=== PATIENT | female | born 1945 | race Caucasian/White ===

== ENCOUNTER 2017-02-17 07:30 | Inpatient (IN) ==
[2017-02-11 18:28] LABS: Appearance,Urine CLEAR; Bilirubin,Urine NEG (NEG); Color,Urine STRAW; Glucose,Urine (UA) NEGATIVE (NEG); Leukocyte Esterase,Urine NEG /uL (NEG); Nitrate,Urine NEG (NEG); Protein,Urine NEG (NEG); Specific Gravity,Urine 1.008 (1.000-1.035); Urine Blood NEG mg/dL (<0.03); Urobilinogen,Urine NEG (NEG)
[2017-02-11 18:34] LABS: Basophils # (Auto) 0 K/mcL (0.0-0.3); Basophils % (Auto) 0.5 % (0.0-2.0); Eosinophils # (Auto) 0.4 K/mcL (0.0-0.7); Eosinophils % (Auto) 4.3 % (0.0-7.0); Granulocytes % (Auto) 64.7 % (38.0-78.0); Lymphocytes # (Auto) 2.4 K/mcL (1.5-4.8); Lymphocytes % (Auto) 24.7 % (15.5-49.0); Mean Cell Volume 87.2 fL (80.0-100.0); Mean Corpuscular HGB Conc 33.6 g/dL (31.0-36.0); Mean Corpuscular Hemoglobin 29.3 pg (26.0-34.0); Monocytes # (Auto) 0.6 K/mcL (0.1-0.9); Monocytes % (Auto) 5.8 % (1.0-12.0); Platelet Count 305 K/mcL (140-440); RBC 4.26 M/mcL (4.00-5.20); Red Cell Distribution Width 14.5 % (11.5-14.5)
[2017-02-11 19:02] LABS: Blood Urea Nitrogen 18 mg/dl (8-23)
[~2017-02-17 07:30] MED LIST: CELECOXIB 200 MG CAPSULE PO SCH; PREGABALIN 75 MG CAPSULE PO SCH; ceFAZolin 1 GM VIAL IV SCH; oxyCODONE 10 MG TAB.ER.12H PO SCH
[2017-02-17] MEDS ORDERED: KETOROLAC 30 MG, ROPIVACAINE HCL/PF 49.5 ML, EPINEPHrine 0.5 MG, 0.9 % SODIUM CHLORIDE ... IJ ONE (08:00)
[2017-02-17] MEDS ORDERED: KETAMINE 100 MG/ML ML IV ONE (12:45)
[2017-02-17] MEDS ORDERED: TRANEXAMIC ACID 1,000 MG/10 ML VIAL IV ONE ×2 (12:45→14:03)
[2017-02-17] MEDS ORDERED: ONDANSETRON 4 MG/2 ML VIAL IV ONE (12:45)
[2017-02-17] MEDS ORDERED: PROPOFOL 200 MG/20 ML VIAL IV ONE (12:45)
[2017-02-17] MEDS ORDERED: LIDOCAINE HCL/PF 100 MG/5 ML SYRINGE IV ONE (12:45)
[2017-02-17] MEDS ORDERED: BUPIVACAINE W/EPI 0.5% 50 ML VIAL IJ ONE (12:45)
[2017-02-17] MEDS ORDERED: GLYCOPYRROLATE 0.2 MG/ML VIAL IV ONE (12:45)
[2017-02-17] MEDS ORDERED: MIDAZOLAM 5 MG/5 ML VIAL IV ONE (12:45)
[2017-02-17] MEDS ORDERED: PHENYLEPHRINE 10 MG/ML VIAL IV ONE (12:45)
[2017-02-17] MEDS ORDERED: GENTAMICIN SULFATE 800 MG/20 ML VIAL IR ONE (13:18)
[2017-02-17] MEDS ORDERED: METHOCARBAMOL 1,000 MG/10 ML VIAL IV PRN (13:44)
[2017-02-17] MEDS ORDERED: fentaNYL 100 MCG/2 ML VIAL IV PRN (13:44)
[2017-02-17] MEDS ORDERED: IPRATROPIUM/ALBUTEROL 3 ML AMPUL.NEB NEB PRN (13:44)
[2017-02-17] MEDS ORDERED: MEPERIDINE 25 MG/ML SYRINGE IV PRN (13:44)
[2017-02-17] MEDS ORDERED: ONDANSETRON 4 MG/2 ML VIAL IV PRN ×2 (13:44→14:03)
[2017-02-17] MEDS ORDERED: PROMETHAZINE 25 MG/ML VIAL IV PRN (13:44)
[2017-02-17] MEDS ORDERED: LACTATED RINGERS 1,000 ML IV SCH (13:45)
[2017-02-17] MEDS ORDERED: HYDROmorphone 2 MG/ML SYRINGE IV PRN (14:03)
[2017-02-17] MEDS ORDERED: BENZOCAINE/MENTHOL 1 LOZENGE PO PRN (14:03)
[2017-02-17] MEDS ORDERED: ONDANSETRON ODT 4 MG TABLET SL PRN (14:03)
[2017-02-17] MEDS ORDERED: BISACODYL 10 MG SUPP.RECT PR PRN (14:03)
[2017-02-17] MEDS ORDERED: METHOCARBAMOL 750 MG TABLET PO PRN (14:03)
[2017-02-17] MEDS ORDERED: ACETAMINOPHEN 325 MG TABLET PO PRN (14:03)
[2017-02-17] MEDS ORDERED: FLEETS ADULT ENEMA PR PRN (14:03)
[2017-02-17] MEDS ORDERED: POLYETHYLENE GLYCOL 3350 17 GM PACKET PO PRN (14:03)
[2017-02-17] MEDS ORDERED: PROMETHAZINE 25 MG/ML VIAL IM PRN (14:03)
[2017-02-17] MEDS ORDERED: MAGNESIUM HYDROXIDE 30 ML ORAL.SUSP PO PRN (14:03)
--- NOTE | 2017-02-17 14:03 | Brief Operative Note ---
Date of procedure: 02/17/17 Pre-op diagnosis: left knee oa Post-op diagnosis: same Procedure: left total knee arthroplasty Grafts/Implants: Yes Anesthesia: spinal Complications: none Surgeon: John Mckeon Improvement Leader: Supriya Bland Estimated blood loss (cc): 100 Tourniquet Time (Minutes): 50 Specimens Removed/Pathology: none sent Condition: stable Disposition: PACU
[2017-02-17] MEDS ORDERED: ALBUTEROL SULFATE 1 PUFF INHALER INH PRN (14:06)
[2017-02-17] MEDS ORDERED: SODIUM CHLORIDE 5% OPTH DROPS BOTTLE 15ML OU PRN (14:06)
[2017-02-17] MEDS ORDERED: PRAVASTATIN 40 MG TABLET PO SCH (14:15)
[2017-02-17] MEDS ORDERED: POLYCARBOPHIL VAG PRN (14:15)
--- NOTE | 2017-02-17 14:17 | Operative Note ---
DATE OF OPERATION: 02/17/2017 PREOPERATIVE DIAGNOSIS: Degenerative joint disease, left knee. POSTOPERATIVE DIAGNOSIS: Degenerative joint disease, left knee. PROCEDURE: Left total knee arthroplasty. SURGEON: Geoffrey Mckeon M.D. RETREAD SUPERVISOR SURGEON: Supriya Bland PA-C. ANESTHESIA: Spinal with LMA assist. ESTIMATED BLOOD LOSS: 100 mL. COMPLICATIONS: None noted. SPECIMENS REMOVED: None. DRAINS: None. TOURNIQUET TIME: 50 minutes at 300 mmHg. IMPLANTS: DePuy CMW2 bone cement 20 grams x4; DePuy Attune femoral posterior stabilized size 6, left narrow; DePuy Attune tibial base fixed bearing size 4 cemented; DePuy Attune tibial insert fixed bearing posterior stabilized size 6, 6 mm AOX; DePuy Attune patella medialized dome 38 mm cemented AOX. INDICATIONS: The patient has had a long-standing history of worsening pain in the knee that has failed conservative treatment. Radiographs have confirmed advanced degenerative joint disease. After a long discussion about treatment options, the patient elected to proceed with a knee arthroplasty. The risks and benefits were discussed with the patient in detail including, but not limited to, the risks of anesthesia, problems with the heart or lungs related to anesthesia, infection, compromise or injury to the nerves and blood vessels, deep venous thrombosis, pulmonary embolism, pneumonia, continued pain after surgery, worsening pain or symptoms after surgery, swelling, loss of motion, instability, leg length discrepancy, and need for repeat surgery. DESCRIPTION OF PROCEDURE: The patient was seen in the pre-anesthesia waiting room where all questions were answered and the correct side and site were identified and marked. The patient was transferred to the operating room and administered the anesthetic and given pre-operative antibiotics. A time-out was then called. The extremity was prepped and draped, exsanguinated, and the tourniquet was inflated to 300 mmHg. A midline skin incision was then made with a standard medial parapatellar arthrotomy. Debridement of the menisci, ACL, and PCL was performed followed by balancing releases in the medial lateral plane. We then established intramedullary access to both the femur and tibia in a standard fashion. The femoral guide samantha was initially placed with the distal femoral guide, pinned into place, and the distal femoral cut was performed and checked with a flat plate. We then turned our attention to the tibia. The intramedullary guide was placed with the proximal tibial cutting block. The block was appropriately positioned off the affected side, varus and valgus was checked with the extra-medullary guide, and the block was pinned into place. The proximal tibial cut was performed and the tibia was prepared for the tibial implant with appropriate rotation. The tibia, femur, and posterior compartment were debrided of osteophytes, loose bodies, and meniscal fragments We then used the gap balancing technique to balance extension with the first two cuts and good balancing was obtained with a 10 millimeter gap block. We turned our attention back to the femur and used the referencing block and implant to size appropriately. Using the gap balancing technique for the flexion space we set our rotation of the femur off the tibial cut. Anesthesia gave the patient 1 gram of Tranexamic Acid via an intravenous route. We placed the 4 in 1 cutting block and made anterior, posterior, and chamfer cuts. Box plasty cuts were then made in a standard fashion for the posterior stabilized prosthesis. We then completed osteophyte release and posterior capsule release from the posterior compartment. Trials were placed and we chose the polyethylene insert thickness that provided the best stability in all planes. With the trials in place, we did a measured resection for a resurfacing patella. We sized the patella and placed the patella trial and performed a lateral facetectomy with the saw and rongeur. Good tracking was obtained. We removed all trials, irrigated and dried all cut surfaces. We cemented the components into place including tibia, femur and patella. We placed a trial liner and held the knee in full extension with the patella compressed while the cement cured. We then removed all excess cement and placed the final polyethylene tibiofemoral component. Irrigation with 3 liters of antibiotic saline was then performed using jet-lavage. We let the tourniquet down and coagulated bleeding vessels. We injected a 100 cubic centimeter volume including Ropivacaine 49.25 cubic centimeters at 5 milligrams per cubic centimeter, Ketorolac 30 milligrams, and Epinephrine 0.5 milligrams into 100 cubic centimeters volume of normal saline. We closed the retinaculum with #2 Stratafix. We closed the subcutaneous tissue and skin in layers out to john in the skin. A sterile pressure dressing was applied. All needle and sponge counts were correct. The patient was transferred to the recovery room in stable condition. JONATHON:andrea Job ID: [id number] Doc ID: [id number] Geoffrey Mckeon MD
[2017-02-17] MEDS: 0.9 % SODIUM CHLORIDE 1,000 ML IV SCH (15:15)
--- NOTE | 2017-02-17 15:23 | XRay Report ---
CLINICAL INFORMATION: Post-Op Total Knee COMPARISON: Preoperative plain films from 07/02/2011. FINDINGS: Total knee prostheses is anatomically aligned. No osseous abnormality. Periarticular gas and soft tissue swelling seen. IMPRESSION: Negative Interpreted and Authenticated by: John Ordaz 02/17/17
[2017-02-17] MEDS: KETOROLAC 15 MG/ML VIAL IV SCH (17:40)
[2017-02-17] MEDS: DOCUSATE SODIUM 100 MG CAPSULE PO SCH (20:46)
[2017-02-17] MEDS: ASPIRIN 325 MG ENTERIC COATED TABLET PO SCH (20:46)
[2017-02-17] MEDS ORDERED: NORTRIPTYLINE 25 MG CAPSULE PO SCH (21:00)
[2017-02-17] MEDS ORDERED: SENNOSIDES 1 TABLET PO SCH (21:00)
[2017-02-17] MEDS ORDERED: SERTRALINE 50 MG TABLET PO SCH (21:00)
[2017-02-17] MEDS ORDERED: MONTELUKAST 10 MG TABLET PO SCH (21:00)
[2017-02-17] MEDS: HYDROcodone/APAP 10/325MG TABLET PO PRN (22:26)
[2017-02-17] MEDS: ceFAZolin 1 GM VIAL IV SCH (23:13)
[2017-02-17] MEDS: 0.9 % SODIUM CHLORIDE 10 ML SYRINGE IV SCH (23:13)
[2017-02-18] MEDS: KETOROLAC 15 MG/ML VIAL IV SCH ×3 (00:10→14:55)
[2017-02-18] MEDS: 0.9 % SODIUM CHLORIDE 1,000 ML IV SCH ×2 (01:43→13:43)
[2017-02-18] MEDS: ceFAZolin 1 GM VIAL IV SCH (05:56)
[2017-02-18] MEDS: 0.9 % SODIUM CHLORIDE 10 ML SYRINGE IV SCH ×2 (06:49→14:57)
--- NOTE | 2017-02-18 06:51 | Discharge Summary ---
Providers - Providers Patient information: Note initiated : 02/18/17 at 6:49 am Service Date, if different from initiated Date: [] Patient: Iris Pal 71 y/o F admitted on 02/17/17 for Total Knee Arthroplasty. Chief Complaint: [s/p left TKA POD #1 s/p left TKA. Patient doing well. Reports minimal pain in the left extremity but denies calf pain, numbness or tingling. She had an episode of orthostasis this morning when she sat up, her BP dropped to 70/40. It stabilized and returned to 103/65 after lying back down. She was restarted on all of her BP medications this morning. She denies CP or SOB. She has no questions or concerns this morning.] Discharge date: 02/18/17 Hospitalization Hospital course: Patient was brought to the OR yesterday for a left TKA which was without complication. She was admitted overnight for pain control and observation. She had no complications or events. She will d/c likely to home today or tomorrow and follow up outpatient in 2 weeks in the clinic. Discharge diagnosis: knee osteoarthritis Exam - Exam Incision healing: Yes Incision draining: No Incision red: No Incision swollen: No Incision inflamed: No Clean and dry: Yes Weight bearing status: as tolerated Range of motion: full AROM b/l ankles/feet/rt knee. Lt knee 5-12/15 Ortho Discharge - TKA - Patient Instructions Diet: Regular Diet Activity: activity as tolerated, ambulate with assistive device, weight bearing as tolerated Total Knee Protocol: For Total Knee: Start ROM MARTHA with stationary bike or rocking chair. Work on gaining full extension of knee. Posterior dislocation precautions provided. Hip abductor strengthening and gait training instructions provided. Apply Cryocuff as instructed. Dressing Care: Other (May shower tomorrow. Remove GABI/gauze. Let water run off, pat dry and replace gauze GABI. Leave dermabond in place until post op appt) - Follow Up Plan Follow Up Appointments: Supriya Bland PA-C [Physician [facility] Shift Superintendent] - 03/04/17 9:30 am Disposition: Home, Self-Care Prognosis: Fair Rehab Potential: Fair Overall status at discharge: patient is progressing back to baseline - Orders For Discharge Prescriptions: Aspirin [Ecotrin] 325 mg PO BID #60 tab.ec HYDROcodone/APAP 10/325MG [[place] 10/325Mg] 1 - 2 tab PO Q4HP PRN #60 tab PRN Reason: Pain Level 3-6 Additional Discharge Orders: Physical Therapy at Discharge - TKA Location: Determined By Patient Walker Location: Determined By Patient Pending Studies Resuscitation Status Full Code Diet Regular Diet Start ThuFeb 17 Lunch Hydrocodone Bitart/Acetaminophen ([place] 10/325mg) 0 tab PO Q4HP PRN PRN Reason: PAIN LEVEL 3-6 Last Admin: 02/17/17 22:26 Dose: 1 tab Aspirin (Ecotrin) 325 mg PO BID [facility] Last Admin: 02/17/17 20:46 Dose: 325 mg Docusate Sodium (Colace) 100 mg PO BID [facility] Last Admin: 02/17/17 20:46 Dose: 100 mg Sodium Chloride (Sodium Chloride 0.9%) 1,000 mls @ 100 mls/hr IV .Q10H [facility] Last Admin: 02/18/17 01:43 Dose: Infusion: 02/18/17 01:42 Dose: 0 mls/hr Admin: 02/17/17 15:15 Dose: 100 mls/hr Ketorolac Tromethamine (Toradol) 15 mg IV Q6 [facility] Stop: 02/19/17 12:01 Last Admin: 02/18/17 05:54 Dose: 15 mg Admin: 02/18/17 00:10 Dose: 15 mg Admin: 02/17/17 17:40 Dose: 15 mg Montelukast Sodium (Singular) 10 mg PO QHS [facility] Last Admin: 02/17/17 20:47 Dose: 10 mg Nortriptyline HCl (Pamelor) 25 mg PO Q3D@2100 [facility] Last Admin: 02/17/17 20:47 Dose: 25 mg Ondansetron HCl (Zofran Odt) 4 mg SL Q4HP PRN PRN Reason: Nausea And Vomiting Last Admin: 02/18/17 05:52 Dose: 4 mg Senna (Senokot) 2 tab PO HS [facility] Last Admin: 02/17/17 20:47 Dose: 2 tab Sertraline HCl (Zoloft) 50 mg PO HS [facility] Last Admin: 02/17/17 20:47 Dose: 50 mg Sodium Chloride (Saline Flush) 10 ml IV Q8 [facility] Last Admin: 02/17/17 23:13 Dose: Not Given Shift Summary 02/18/17 03:46 Shift Summary by Saira Davis Patient is minimal assist with FWW to BSC. She c/o left knee pain X 1 and was given 1 [place] 10/325 with some relief. She was also given her scheduled Toradol which also seemed to help. She has been able to void w/o difficulty. IV LFA SL. She did use her CPM X 2 hours early in the shift. Patient slept most of the night. Patient was pleasant and cooperative. Initialized on 02/18/17 03:46 - END OF NOTE Exam Vital signs: Temp Pulse Resp BP Pulse Ox 98.2 F 65 12 131/66 97 02/18/17 04:52 02/18/17 04:52 02/18/17 04:52 02/18/17 04:52 02/18/17 04:52 Constitutional: no acute distress Cardiovascular: other (DP/PT pulses 2+ b/l. ) Neurologic: sensation intact to touch, other (motor grossly intact. B/l LE NVI) Psychiatric: oriented to person, place and time
[2017-02-18] MEDS: HYDROcodone/APAP 10/325MG TABLET PO PRN ×3 (07:18→15:32)
[2017-02-18] MEDS ORDERED: PANTOPRAZOLE 40 MG TABLET PO SCH (07:30)
[2017-02-18] MEDS: DOCUSATE SODIUM 100 MG CAPSULE PO SCH (08:23)
[2017-02-18] MEDS: ASPIRIN 325 MG ENTERIC COATED TABLET PO SCH (08:23)
[2017-02-18] MEDS ORDERED: VALSARTAN PO SCH (09:00)
[2017-02-18] MEDS ORDERED: amLODIPine 10 MG TABLET PO SCH (09:00)
[2017-02-18] MEDS ORDERED: HYDROCHLOROTHIAZIDE 12.5 MG CAPSULE PO SCH (09:00)
[2017-02-18] MEDS ORDERED: AMLODIPINE PO SCH (09:00)
[2017-02-18] MEDS ORDERED: [UNRECOGNIZED DRUG - OTHER] PO SCH (09:00)
[2017-02-18] MEDS ORDERED: VALSARTAN 160 MG TABLET PO SCH (09:00)
[2017-02-18] MEDS ORDERED: PNEUMOCOCCAL 23-VAL P-SAC VAC 0.5 ML VIAL IM ONE (10:00)
[2017-02-18] MEDS ORDERED: SIMVASTATIN 20 MG TABLET PO SCH (21:00)
== END 2017-02-18 16:05 | disposition home or self-care (01) | DRG 470 ==
LOC: MEDSUR 08:01
PROVIDERS: ADMIT Orthopaedic Surgery Sports Medicine; ATTEND Orthopaedic Surgery Sports Medicine